=== PATIENT | male | born 1970 | race Caucasian/White ===

== ENCOUNTER 2022-10-13 10:43 | Inpatient (IN) | payer OTHER ==
[~2022-10-13 10:43] MED LIST: Iopamidol-370 76% 500 ML MDV (1 ML CHARGE) ONE
[2022-10-13 11:32] LABS: #Eosinphils 0.3 thou/uL (0.0-0.7); #Monocytes 1.6 thou/uL (0.11-0.59); #Neutrophils 10.5 thou/uL (1.40-6.50); %Basophils 0.2 % (0.0-1.0); %Eosinophils 2.2 % (0.0-10.0); %Lymphocytes 9.9 % (21.0-51.0); %Monocytes 11.5 % (0.0-10.0); %Neutrophils 75.1 % (42.0-75.0); Hematocrit 47.5 % (42.0-52.0); Hemoglobin 15.7 g/dL (14.0-18.0); Mean Corpuscular HGB CONC 33.1 g/dL (32.0-36.0); Mean Corpuscular Hemoglobin 31.5 pg (27.0-31.0); Mean Corpuscular Volume 95.2 fl (78.0-98.0); Mean Platelet Volume 10.1 fL (7.4-10.4); Platelet Count 334 10x3/uL (130-400); RBC Distribution Width 12.6 % (11.5-14.5); Red Blood Cell (RBC) Count 4.99 mill/uL (4.70-6.10); White Blood Cell (WBC) Count 13.9 10x3/uL (4.8-10.8)
[2022-10-13 11:50] LABS: ALT (SGPT) 17 U/L (8-55); AST (SGOT) 16 U/L (5-34); Albumin 4.5 g/dL (3.5-5.0); Alkaline Phosphatase 66 U/L (40-110); Anion Gap 20 mmol/L (10-20); BUN (Urea Nitrogen) 11 mg/dL (8.4-25.7); Bilirubin, Total 0.8 mg/dL (0.2-1.2); Calc. Creatinine Clearance 0 mL/min (70-130); Calcium 10.7 mg/dL (7.8-10.44); Carbon Dioxide 20 mmol/L (22-29); Chloride 101 mmol/L (98-107); Estimated GFR 104; Globulin 4.7 g/dL (2.4-3.5); Glucose 98 mg/dL (70-105); Protein, Total 9.2 g/dL (6.0-8.3); Sodium 136 mmol/L (136-145)
[2022-10-13] MEDS ORDERED: Cefepime 2 GM VIAL ONE (12:26)
[2022-10-13 13:17] LABS: SARS-CoV-2 NAA Rapid Test Not Detected (NotDetected)
[2022-10-13] MEDS ORDERED: Vancomycin 1 GM/200 ML (FROZEN) BAG ONE (13:39)
[2022-10-13] MEDS ORDERED: Ipratropium/Albuterol 3 ML NEB NEB PRN (14:14)
[2022-10-13 14:20] LABS: Lactic Acid 0.9 mmol/L (0.5-2.2)
[2022-10-13 14:31] LABS: Bacteria/HPF None Seen HPF (None Seen); Bilirubin Negative (Negative); Blood, Urine Negative (Negative); CAUTI Indications for Culture Dysuria,urgency,freq; Clarity Clear (Clear); Glucose, Urine (Dipstick) Normal (Negative); Ketone, Urine Trace mg/dL (Negative); Leukocyte Negative Leu/uL (Negative); Nitrite Negative (Negative); Protein, Urine (Dipstick) Negative (Neg-Trace); RBC/HPF 0-3 HPF (0-3); Squamous Epithelial 0-3 HPF (0-3); Urobilinogen Normal mg/dL (Less than 2); WBC/HPF 0-3 HPF (0-3); pH, Urine 6.5 (5.0-9.0)
[2022-10-13 14:32] LABS: Specific Gravity, Urine 1.048 (1.002-1.036); Urine Culture Reflex No No
[2022-10-13] MEDS ORDERED: Vancomycin HCl 750 MG in Sodium Chloride 0.9% 250 ML 250 ML IVPB SCH (17:15)
[2022-10-13] MEDS ORDERED: Acetaminophen 325 MG TAB PO PRN (17:30)
[2022-10-13] MEDS ORDERED: HYDROcodone/Acetaminophen 5/325 mg Tablet PO PRN (17:30)
[2022-10-13 17:34] VITALS: BMI 23.6
[2022-10-13] MEDS: Azithromycin 500 MG in Sodium Chloride 0.9% 250 ML 250 ML IVPB SCH (18:17)
[2022-10-13] MEDS ORDERED: Vancomycin 1 GM in Premix Bag 1 BAG IVPB SCH (21:00)
[2022-10-13] MEDS: Cefepime 2 GM in Sodium Chloride 0.9% 100 ML IVPB SCH (23:06)
[2022-10-14] MEDS: HYDROcodone/Acetaminophen 5/325 mg Tablet PO PRN ×2 (02:04→08:48)
[2022-10-14 05:46] LABS: #Basophils 0.1 thou/uL (0.0-0.2); #Eosinphils 0.6 thou/uL (0.0-0.7); #Monocytes 1.9 thou/uL (0.11-0.59); #Neutrophils 7.5 thou/uL (1.40-6.50); %Basophils 0.4 % (0.0-1.0); %Eosinophils 5.2 % (0.0-10.0); %Lymphocytes 15.4 % (21.0-51.0); %Monocytes 15.9 % (0.0-10.0); %Neutrophils 61.9 % (42.0-75.0); Hematocrit 40.5 % (42.0-52.0); Hemoglobin 13.2 g/dL (14.0-18.0); Mean Corpuscular HGB CONC 32.6 g/dL (32.0-36.0); Mean Corpuscular Hemoglobin 31.2 pg (27.0-31.0); Mean Corpuscular Volume 95.7 fl (78.0-98.0); Mean Platelet Volume 10.2 fL (7.4-10.4); Platelet Count 295 10x3/uL (130-400); RBC Distribution Width 12.7 % (11.5-14.5); Red Blood Cell (RBC) Count 4.23 mill/uL (4.70-6.10)
[2022-10-14 06:11] LABS: Anion Gap 12 mmol/L (10-20); BUN (Urea Nitrogen) 10 mg/dL (8.4-25.7); Calc. Creatinine Clearance 124 mL/min (70-130); Calcium 9.5 mg/dL (7.8-10.44); Carbon Dioxide 22 mmol/L (22-29); Chloride 106 mmol/L (98-107); Estimated GFR 106; Glucose 119 mg/dL (70-105); Potassium 4.1 mmol/L (3.5-5.1); Sodium 136 mmol/L (136-145)
[2022-10-14] MEDS: Cefepime 2 GM in Sodium Chloride 0.9% 100 ML IVPB SCH ×2 (12:05→22:39)
[2022-10-14] MEDS: Azithromycin 500 MG in Sodium Chloride 0.9% 250 ML 250 ML IVPB SCH (15:53)
[2022-10-14 16:41] LABS: ANA Symphony (Qualitative) Negative (Negative); ANA Symphony (Quantitative) 0.5 Ratio (< 0.7 Negative); dsDNA IgG Antibody 0.9 IU/mL (<10 Negative)
[2022-10-14 17:01] LABS: ANA Symphony (Qualitative) Negative (Negative); ANA Symphony (Quantitative) 0.4 Ratio (< 0.7 Negative); CCP IgG Antibody 1.1 EliAU/mL (<7 Negative); Rheumatoid Factor IgA Antibody 4.6 IU/mL (<14 Negative); Rheumatoid Factor IgM Antibody Less than 0.6 IU/mL (<3.5 Negative); Thyroid Peroxidase IgG Ab Less than 4.0 IU/mL (<25 Normal); dsDNA IgG Antibody 0.8 IU/mL (<10 Negative)
[2022-10-14] MEDS: Clindamycin 150 MG CAP PO SCH (22:39)
[2022-10-14] MEDS ORDERED: Bisacodyl 5 MG TAB PO PRN (22:49)
[2022-10-14] MEDS ORDERED: Senokot S 8.6-50 MG TAB PO PRN (22:49)
[2022-10-14 23:23] LABS: HIV (1/2) Antibody/Antigen Non-Reactive (NonReactive); HIV 1/2 INDEX 0.11 S/CO (<1.00)
[2022-10-14] MEDS ORDERED: Clindamycin/D5W 600 MG in Premix Bag 1 BAG IVPB SCH (23:59)
[2022-10-15] MEDS: Clindamycin 150 MG CAP PO SCH ×4 (05:25→23:36)
[2022-10-15] MEDS ORDERED: Iopamidol-370 76% 500 ML MDV (1 ML CHARGE) ONE (09:40)
[2022-10-15] MEDS: Cefepime 2 GM in Sodium Chloride 0.9% 100 ML IVPB SCH ×2 (12:15→23:35)
[2022-10-15] MEDS: Azithromycin 500 MG in Sodium Chloride 0.9% 250 ML 250 ML IVPB SCH (16:08)
[2022-10-15] MEDS: Aluminum & Magnesium Hydroxide 60 ML, Lidocaine 2% Viscous Solution 30 ML, diphenhydrAM... SSP SCH (19:52)
[2022-10-15] MEDS: HYDROcodone/Acetaminophen 5/325 mg Tablet PO PRN (23:36)
[2022-10-16] MEDS: Clindamycin 150 MG CAP PO SCH ×4 (05:33→23:43)
[2022-10-16] MEDS: Aluminum & Magnesium Hydroxide 60 ML, Lidocaine 2% Viscous Solution 30 ML, diphenhydrAM... SSP SCH (10:28)
[2022-10-16 12:37] LABS: %CD4 (Helper/Inducer) 57.6 % (30.8-58.5); Absolute CD4 922 /uL (359-1519); Lymphocytes/Gated Cell Count 1.6 x10E3/uL (0.7-3.1); Total Lymphocyte 16 % (Not Estab.); WBC Total Count 9.5 x10E3/uL (3.4-10.8)
[2022-10-16] MEDS: Cefepime 2 GM in Sodium Chloride 0.9% 100 ML IVPB SCH ×2 (12:37→23:43)
[2022-10-16 15:07] LABS: Legionella Urinary Ag Negative (Negative); Strep pneumo Urine Ag NEGATIVE (NEGATIVE)
[2022-10-16] MEDS: Azithromycin 500 MG in Sodium Chloride 0.9% 250 ML 250 ML IVPB SCH (15:52)
[2022-10-16 21:37] LABS: QuantiFERON-TB Gold Plus Negative (Negative)
[2022-10-17] MEDS: Clindamycin 150 MG CAP PO SCH ×4 (05:27→23:38)
[2022-10-17 09:01] LABS: #Eosinphils 0.7 thou/uL (0.0-0.7); #Monocytes 1.4 thou/uL (0.11-0.59); #Neutrophils 4.6 thou/uL (1.40-6.50); %Basophils 0.5 % (0.0-1.0); %Eosinophils 8.2 % (0.0-10.0); %Lymphocytes 16.9 % (21.0-51.0); %Monocytes 17.1 % (0.0-10.0); %Neutrophils 56.3 % (42.0-75.0); Hemoglobin 13.2 g/dL (14.0-18.0); Mean Corpuscular Hemoglobin 30.8 pg (27.0-31.0); Mean Corpuscular Volume 93.5 fl (78.0-98.0); Mean Platelet Volume 10.1 fL (7.4-10.4); Platelet Count 304 10x3/uL (130-400); RBC Distribution Width 12.1 % (11.5-14.5); Red Blood Cell (RBC) Count 4.28 mill/uL (4.70-6.10); White Blood Cell (WBC) Count 8.2 10x3/uL (4.8-10.8)
[2022-10-17 09:29] LABS: Anion Gap 12 mmol/L (10-20); BUN (Urea Nitrogen) 9 mg/dL (8.4-25.7); Calc. Creatinine Clearance 129 mL/min (70-130); Calcium 9.6 mg/dL (7.8-10.44); Carbon Dioxide 21 mmol/L (22-29); Chloride 107 mmol/L (98-107); Estimated GFR 107; Glucose 109 mg/dL (70-105); Potassium 4.5 mmol/L (3.5-5.1); Sodium 135 mmol/L (136-145)
[2022-10-17] MEDS: Cefepime 2 GM in Sodium Chloride 0.9% 100 ML IVPB SCH (11:31)
[2022-10-17 11:52] LABS: Free T4 (Free Thyroxine) 0.82 ng/dL (0.70-1.48); Thyroid Stimulating Hormone 5.653 uIU/mL (0.35-4.94)
[2022-10-17 14:38] LABS: Cytoplasmic (C-ANCA) <1:20 titer (Neg:<1:20); Myeloperoxidase AutoAbs <0.2 units (0.0-0.9); Perinuclear (P-ANCA) <1:20 titer (Neg:<1:20); Proteinase-3 AutoAbs Less than 0.2 units (0.0-0.9)
[2022-10-17 14:49] LABS: Allergen,Aspergillus fumig.IgE Less than 0.10 kU/L (Less than 0.10)
[2022-10-17 15:38] LABS: A/G Ratio 0.8 (0.7-1.7); Albumin 2.9 g/dL (2.9-4.4); Alpha 1 0.5 g/dL (0.0-0.4); Alpha 2 1.2 g/dL (0.4-1.0); Beta 1.1 g/dL (0.7-1.3); Globulin, Total 3.7 g/dL (2.2-3.9); M-Spike Not Observed g/dL (Not Observed)
[2022-10-17] MEDS: Azithromycin 500 MG in Sodium Chloride 0.9% 250 ML 250 ML IVPB SCH (15:41)
[2022-10-17 21:13] LABS: RMSF IgG (EIA) Negative (Negative); RMSF IgM 0.19 index (0.00-0.89)
[2022-10-18] MEDS: Clindamycin 150 MG CAP PO SCH (05:29)
[2022-10-18 06:56] LABS: #Basophils 0.1 thou/uL (0.0-0.2); #Eosinphils 0.7 thou/uL (0.0-0.7); #Monocytes 1.4 thou/uL (0.11-0.59); %Basophils 0.6 % (0.0-1.0); %Eosinophils 7.9 % (0.0-10.0); %Lymphocytes 18.2 % (21.0-51.0); %Neutrophils 56.7 % (42.0-75.0); Hematocrit 37.9 % (42.0-52.0); Hemoglobin 12.8 g/dL (14.0-18.0); Mean Corpuscular HGB CONC 33.8 g/dL (32.0-36.0); Mean Corpuscular Hemoglobin 31.2 pg (27.0-31.0); Mean Corpuscular Volume 92.4 fl (78.0-98.0); Mean Platelet Volume 10.1 fL (7.4-10.4); Platelet Count 300 10x3/uL (130-400); White Blood Cell (WBC) Count 8.8 10x3/uL (4.8-10.8)
[2022-10-18 07:16] LABS: Anion Gap 12 mmol/L (10-20); BUN (Urea Nitrogen) 8 mg/dL (8.4-25.7); Calc. Creatinine Clearance 131 mL/min (70-130); Calcium 9.5 mg/dL (7.8-10.44); Carbon Dioxide 22 mmol/L (22-29); Chloride 105 mmol/L (98-107); Estimated GFR 108; Glucose 107 mg/dL (70-105); Potassium 4.1 mmol/L (3.5-5.1); Sodium 135 mmol/L (136-145)
[2022-10-18 07:54] VITALS: BP 118/88; TEMP 98
[2022-10-19 21:36] LABS: Mycoplasma pneumoniae IgG AB 300 U/mL (0-99); Mycoplasma pneumoniae IgM AB Less than 770 U/mL (0-769)
[2022-10-21 16:37] LABS: A. flavus Negative (Neg:<1:1); A. fumigatus Negative (Neg:<1:1); A. niger Negative (Neg:<1:1)
[2022-10-22 11:10] LABS: Brucella IgM Ab Negative (Negative)
== END 2022-10-18 14:13 | disposition home or self-care (01) | DRG 194 ==
LOC: ERS 10:43 → ERHOLD 14:29 → T4-A 17:24
PROVIDERS: ADMIT Internal Medicine; ATTEND Internal Medicine
DX: J18.9 Pneumonia, unspecified organism (principal); E87.1 Hypo-osmolality and hyponatremia; E87.20 Acidosis, unspecified; J90 Pleural effusion, not elsewhere classified; F17.290 Nicotine dependence, other tobacco product, uncomplicated; Z71.6 Tobacco abuse counseling; Z79.899 Other long term (current) drug therapy; J01.80 Other acute sinusitis
CPT/HCPCS: 36415; 71045; 71275; 80048; 80053; 81001; 83516; 83520; 83605; 83880; 84145; 84155; 84165; 84439; 84443; 84481; 84484; 85025; 85652; 86037; 86038; 86140; 86160; 86200; 86225; 86331; 86361; 86376; 86480; 86602; 86606; 86618; 86622; 86635; 86671; 86720; 86757; 87040; 87081; 87103; 87116; 87206; 87385; 87389; 87449; 87899; 93005; 96365; 96367; J0456; J0692; J1650; J3370; J3370-JW; J3490; J7050; Q0163; Q9967

== ENCOUNTER 2022-11-03 11:41 | Outpatient (CLI) | payer OTHER | END 2022-11-03 11:42 | disposition home or self-care (01) | LOC: RAD 11:41 | PROVIDERS: ATTEND Nurse Practitioner Family | DX: D72.828 Other elevated white blood cell count (principal); J18.9 Pneumonia, unspecified organism; J90 Pleural effusion, not elsewhere classified | CPT/HCPCS: 71046 ==

== ENCOUNTER 2023-01-24 10:49 | Outpatient (CLI) | payer OTHER | END 2023-01-24 10:50 | disposition home or self-care (01) | LOC: RAD 10:49 | PROVIDERS: ATTEND Nurse Practitioner Family | DX: M25.551 Pain in right hip (principal); M25.552 Pain in left hip; M16.0 Bilateral primary osteoarthritis of hip ==

== ENCOUNTER 2023-04-02 06:38 | Emergency (ER) | payer OTHER ==
[2023-04-02 07:48] LABS: #Basophils 0.1 thou/uL (0.0-0.2); #Eosinphils 0.4 thou/uL (0.0-0.7); #Monocytes 1.1 thou/uL (0.11-0.59); #Neutrophils 3.7 thou/uL (1.40-6.50); %Basophils 0.7 % (0.0-1.0); %Eosinophils 5.5 % (0.0-10.0); %Lymphocytes 28.2 % (21.0-51.0); %Monocytes 14.9 % (0.0-10.0); %Neutrophils 50.3 % (42.0-75.0); Hematocrit 44.1 % (42.0-52.0); Hemoglobin 15.1 g/dL (14.0-18.0); Mean Corpuscular HGB CONC 34.2 g/dL (32.0-36.0); Mean Corpuscular Hemoglobin 32.2 pg (27.0-31.0); Mean Platelet Volume 10.4 fL (7.4-10.4); Platelet Count 232 10x3/uL (130-400); RBC Distribution Width 12.4 % (11.5-14.5); Red Blood Cell (RBC) Count 4.69 mill/uL (4.70-6.10); White Blood Cell (WBC) Count 7.4 10x3/uL (4.8-10.8)
[2023-04-02 08:15] LABS: ALT (SGPT) 18 U/L (8-55); AST (SGOT) 17 U/L (5-34); Albumin 4.4 g/dL (3.5-5.0); Alkaline Phosphatase 42 U/L (40-110); Anion Gap 12 mmol/L (10-20); BUN (Urea Nitrogen) 15 mg/dL (8.4-25.7); Bilirubin, Total 0.7 mg/dL (0.2-1.2); Calc. Creatinine Clearance 0 mL/min (70-130); Calcium 9.3 mg/dL (7.8-10.44); Carbon Dioxide 19 mmol/L (22-29); Chloride 107 mmol/L (98-107); Estimated GFR 106; Globulin 3.1 g/dL (2.4-3.5); Glucose 100 mg/dL (70-105); Protein, Total 7.5 g/dL (6.0-8.3); Sodium 134 mmol/L (136-145)
== END 2023-04-02 08:46 | disposition home or self-care (01) ==
LOC: ERS 06:38
DX: R20.2 Paresthesia of skin (principal); M54.12 Radiculopathy, cervical region; F17.220 Nicotine dependence, chewing tobacco, uncomplicated
CPT/HCPCS: 36415; 72125; 80053; 85025